=== PATIENT | female | born 2000 | race Caucasian/White ===

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

== ENCOUNTER 2018-01-22 11:25 | Outpatient (CLI) | payer MEDICAID ==
[2018-01-22 12:46] LABS: BASOPHILS % (AUTO) 0.4 %; EOSINOPHILS # (AUTO) 0.2 10^3/uL (0.0-0.7); EOSINOPHILS % (AUTO) 1.4 %; HGB - HEMOGLOBIN 11.4 g/dL (12.0-16.0); LYMPHOCYTES # (AUTO) 1.7 10^3/uL (1.5-3.5); LYMPHOCYTES % (AUTO) 14.1 %; MEAN CORPUSCULAR HEMOGLOBIN 30.8 pg (27.0-31.0); MEAN CORPUSCULAR HGB CONC 34.3 g/dL (32.0-36.0); MEAN CORPUSCULAR VOLUME 89.7 fL (81.0-99.0); MEAN PLATELET VOLUME 7.8 fL (7.9-10.8); MONOCYTES # (AUTO) 1.3 10^3/uL (0.0-1.0); MONOCYTES % (AUTO) 10.5 %; NEUTROPHILS % (AUTO) 73.6 %; PLT - PLATELET COUNT 197 10^3/uL (130-450); RED CELL DISTRIBUTION WIDTH 12.5 % (12.0-15.0); WHITE BLOOD COUNT 12.2 x10^3/uL (4.8-10.8)
== END 2018-01-22 11:26 | disposition home or self-care (01) ==
LOC: LAB 11:25
PROVIDERS: ATTEND Obstetrics & Gynecology
DX: Z34.90 Encounter for supervision of normal pregnancy, unspecified, unspecified trimester (principal)
CPT/HCPCS: 36415; 82950; 85025; 86850

== ENCOUNTER 2018-02-26 14:55 | Outpatient (CLI) | payer MEDICAID | END 2018-02-26 14:56 | disposition home or self-care (01) | LOC: LAB.R 14:55 | PROVIDERS: ATTEND Obstetrics & Gynecology | DX: R80.9 Proteinuria, unspecified (principal) | CPT/HCPCS: 87086 ==

== ENCOUNTER 2018-04-12 08:00 | Outpatient (CLI) | payer MEDICAID | END 2018-04-12 08:01 | LOC: LAB.R 08:00 | PROVIDERS: ATTEND Obstetrics & Gynecology | DX: Z36.85 Encounter for antenatal screening for Streptococcus B (principal) | CPT/HCPCS: 87081 ==

== ENCOUNTER 2018-05-02 15:29 | Inpatient (IN) | payer MEDICAID ==
[2018-05-02 16:42] LABS: BASOPHILS # (AUTO) 0.1 10^3/uL (0.0-0.1); BASOPHILS % (AUTO) 0.5 %; EOSINOPHILS # (AUTO) 0.2 10^3/uL (0.0-0.7); EOSINOPHILS % (AUTO) 1.5 %; HGB - HEMOGLOBIN 9.9 g/dL (12.0-16.0); LYMPHOCYTES # (AUTO) 1.5 10^3/uL (1.5-3.5); LYMPHOCYTES % (AUTO) 11.2 %; MEAN CORPUSCULAR HEMOGLOBIN 25.9 pg (27.0-31.0); MEAN CORPUSCULAR HGB CONC 32.6 g/dL (32.0-36.0); MEAN CORPUSCULAR VOLUME 79.5 fL (81.0-99.0); MEAN PLATELET VOLUME 8.3 fL (7.9-10.8); MONOCYTES # (AUTO) 1.5 10^3/uL (0.0-1.0); MONOCYTES % (AUTO) 11.1 %; NEUTROPHILS # (AUTO) 10.4 10^3/uL (1.5-6.6); NEUTROPHILS % (AUTO) 75.7 %; PLT - PLATELET COUNT 231 10^3/uL (130-450); RED BLOOD COUNT 3.83 10^6/uL (4.20-5.40); RED CELL DISTRIBUTION WIDTH 14.6 % (12.0-15.0); WHITE BLOOD COUNT 13.8 x10^3/uL (4.8-10.8)
[2018-05-02 16:53] LABS: URIC ACID 4.1 mg/dL (2.6-7.2)
[2018-05-02 16:55] LABS: CREATININE,URINE 172.5 mg/dL; PROTEIN/CREATININE RATIO,URINE 0.1 (<=0.2)
[2018-05-02] MEDS ORDERED: fentaNYL 100 MCG/2 ML VIAL IVP PRN (19:10)
[2018-05-02] MEDS ORDERED: SODIUM CHLORIDE FLUSH 0.9% 10 ML SYRINGE IVP PRN (19:10)
--- NOTE | 2018-05-02 19:19 | PROVIDER PROGRESS NOTE ---
Labor Progress Note - Uterine Monitoring Uterine Monitoring Mode: positive: External toco Contraction Frequency (min/apart): Irregular Contraction Intensity: positive: Other (Minimal) Uterine Resting Tone: positive: Soft - Monitoring Monitor Mode: positive: External ultrasound Heart Rate Baseline: Baseline [id number] Heart Rate Variability: positive: Moderate (6-25 bmp) Accelerations: positive: Present, 15x15 Decelerations: positive: None Strip Review: positive: Category I - Vaginal Exam Dilation (in cm): 3 Effacement (%): 60%70% Station: -1 Cervical Position: Midposition - Labor Progress Note Labor Progress Note/Additional Text: Patient being induced for mild gestational hypertension. Quigley score is 8 and Cytotec per [place] membrane is planned. Indications, risks, benefits and alternative to delay induction was reviewed with the patient. Mechanics of induction was reviewed. Patient would like an epidural. Induction consent explained and then signed. Typewritten H&P dictated
[2018-05-02] MEDS: miSOPROStol 100 MCG TABLET BC SCH (20:22)
[2018-05-02] MEDS: LACTATED RINGERS 1,000 ML IV SCH (22:00)
[2018-05-02] MEDS: ACETAMINOPHEN 325 MG TABLET PO SCH (22:16)
[2018-05-03] MEDS: miSOPROStol 100 MCG TABLET BC SCH ×2 (00:35→05:04)
[2018-05-03] MEDS ORDERED: SODIUM CHLORIDE FLUSH 0.9% 10 ML SYRINGE IVP SCH (01:00)
--- NOTE | 2018-05-03 01:29 | HISTORY & PHYSICAL EXAMINATION ---
DATE OF SERVICE: 05/02/2018 Physician: Favian Carrasco MD DIAGNOSES 1. A 39-week 3 day gestation. 2. Gestational hypertension, mild. 3. Anxiety. 4. Anemia. 5. Rh Neg HISTORY OF PRESENT ILLNESS: The patient is a 17-year-old primigravida at 39 weeks 3 days gestation based on 8-week ultrasound, yielding EDC of 05/11/2018. Today, she presented to labor and delivery for blood pressure check and NST. She reports morning headache on most days without visual changes, or right upper quadrant pain. She notes worsened edema in her lower extremities and fingers. On Thursday, she was evaluated in the office and found to have a blood pressure of 140/72 and mild edema. At that time, her cervical exam was 1 cm, 20% effaced and -1 station, posterior. Today's exam has markedly progressed. The [facility] with [facility] total [facility]. Baseline labs: A negative, antibody negative, maternal Rh negative blood type, RPR negative, rubella immune, integrated serum normal, anatomy scan normal, HIV negative, Glucola challenge test 89, a 20-week antibody test negative, GBS negative. RhoGAM injection on 02/11/2018. PAST MEDICAL HISTORY: No chronic disease history or hypertension. The patient states she does have a "nervous stomach." ALLERGIES: NO KNOWN DRUG ALLERGIES. MEDICATIONS: PNV. FAMILY HISTORY: No congenital anomaly history. Positive diabetes, depression, CAD and hypertension. SOCIAL HISTORY: High school graduate. , . Did work as a director of hotel operations. REVIEW OF SYSTEMS CONSTITUTIONAL: No fevers, chills, or recent illness. HEENT: Mild bitemporal headache noted before. No thyroid disease. PULMONARY: Negative. CARDIAC: Negative. GASTROINTESTINAL: Negative currently. GENITOURINARY: Negative. No vaginal bleeding, leakage of fluid or discharge. MUSCULOSKELETAL: Negative. NEUROLOGIC: Negative. PSYCHIATRIC: The patient states that she is uncertain and anxious because everything is new to her. PHYSICAL EXAMINATION GENERAL: Well groomed. in attendance. Patient obviously nervous. Alert, oriented. VITAL SIGNS: Blood pressure 150s/mid 80s. Afebrile. HEENT: Supple neck. Moist mucous membranes. No thyromegaly. EOMI. Nonicteric sclerae. BREASTS: Deferred. LUNGS: Clear to auscultation all quadrants. HEART: Regular. No murmur, no gallop. ABDOMEN: No epigastric tenderness. UTERUS: appropriate size. Vertex presentation. Estimated weight to be 7 -7-1/2 pounds. Normal resting tone. No significant contractions. EXTERNAL GENITALIA: No lesions. VAGINA: No blood or discharge. CERVIX: 3 cm, 60-70% effaces, -1 station, bag of water intact. EXTREMITIES: 2+ finger and hand edema, 1+ tibial edema, 2+ ankle edema, slight facial edema. NEUROLOGIC: Patellar reflexes brisk bilaterally. No clonus elicited. PSYCHIATRIC: Anxious. LABORATORY DATA: Hemoglobin 9.9, platelets 231, white count 13.8; uric acid 4.1 , AST 25, LDH 64. Urine protein to creatinine ratio is 0.1. ASSESSMENT: Patient has had two blood pressures over 140/90 on differing occasions by six hours. She has signs of preeclampsia including headache and edema. Her lab values are normal except for anemia. She is term and meets criteria for gestational hypertension and therefore should be delivered. Cervix is inducible and Quigley score is 8. I had an extended discussion of risks and benefits with the patient and her . If we do not take this opportunity to induce, she will have worsening gestational hypertension. Risk of induction are increased rate, hyperstimulation , cord prolapse, increased blood loss overall, and labor pain. Though some of these risks are slightly higher than vaginal , when balanced against prospects of developing worsening gestational hypertension, induction is her best course of action. We also discussed epidural, about which she had some misconceptions in the probability of having a spinal injury with epidural placement. These misconceptions were placed in perspective. PLAN: Begin Cytotec buccal membrane induction of labor 50 mcg every 4 hours. As head becomes more applied to the cervix and descends, anticipate ruptured membranes, IUPC and conversion to possibly Pitocin if augmentation is required. The patient strongly desires epidural and combination of fentanyl and nitrous oxide will be used in the interim. All patient and questions were answered. TD: 05/02/2018 19:58 SHERYL
--- NOTE | 2018-05-03 01:58 | PROVIDER PROGRESS NOTE ---
Labor Progress Note - Uterine Monitoring Uterine Monitoring Mode: positive: External toco Contraction Frequency (min/apart): q2.5-3 Contraction Intensity: positive: Mild to moderate Uterine Resting Tone: positive: Soft - Monitoring Monitor Mode: positive: External ultrasound Heart Rate Baseline: 125 Heart Rate Variability: positive: Moderate (6-25 bmp) Accelerations: positive: Present, 15x15 Decelerations: positive: Early Strip Review: positive: Category I - Vaginal Exam Dilation (in cm): 6 Station: 1 Cervical Position: Anterior - Labor Progress Note Labor Progress Note/Additional Text: Entering Active Phase of Labor: Desires Epidural
[2018-05-03] MEDS ORDERED: fent/BUPIV 2 MCG/0.125% 250 ML EP ONE (02:35)
[2018-05-03] MEDS ORDERED: ROPIVACAINE 0.2% PF 20 ML AMPULE ONE (02:37)
[2018-05-03] MEDS: ACETAMINOPHEN 325 MG TABLET PO SCH (03:03)
[2018-05-03] MEDS ORDERED: NALBUPHINE 10 MG/ML AMP IVP PRN (03:19)
[2018-05-03] MEDS ORDERED: diphenhydrAMINE INJ 50 MG/ML VIAL IVP PRN (03:19)
[2018-05-03] MEDS ORDERED: NALOXONE 0.4 MG/ML VIAL IVP PRN (03:19)
[2018-05-03] MEDS ORDERED: fent/BUPIV 2 MCG/0.125% 250 ML EP PRN (03:19)
[2018-05-03] MEDS ORDERED: ePHEDrine 50 MG/ML VIAL IVP PRN (03:19)
[2018-05-03] MEDS ORDERED: LACTATED RINGERS 500 ML IV ONE ×2 (03:19→20:19)
[2018-05-03] MEDS ORDERED: ONDANSETRON 4 MG/2 ML VIAL IVP PRN (03:19)
[2018-05-03] MEDS: LACTATED RINGERS 1,000 ML IV SCH ×4 (03:20→20:26)
[2018-05-03] MEDS: ONDANSETRON 4 MG/2 ML VIAL IVP PRN ×2 (06:21→13:19)
--- NOTE | 2018-05-03 08:40 | PROVIDER PROGRESS NOTE ---
Labor Progress Note - Uterine Monitoring Uterine Monitoring Mode: positive: External toco Contraction Frequency (min/apart): Q2-3 Contraction Intensity: positive: Mild to moderate Uterine Resting Tone: positive: Soft - Monitoring Monitor Mode: positive: External ultrasound Heart Rate Variability: positive: Moderate (6-25 bmp) Accelerations: positive: Present, 15x15 Decelerations: positive: None Strip Review: positive: Category I - Vaginal Exam Dilation (in cm): (Deferred) - Labor Progress Note Labor Progress Note/Additional Text: 17 yo with a 39w4d IUP Gestational HTN Reassuring maternal and status SROM at 0500, clear S/p 2 doses of cytotec at 20:25 and 05:00 Expect to start pitocin if cervix improved Expect No S/s pre-eclampsia
--- NOTE | 2018-05-03 08:51 | PROVIDER PROGRESS NOTE ---
Labor Progress Note - Uterine Monitoring Uterine Monitoring Mode: positive: External toco Contraction Frequency (min/apart): Every 3 minutes Contraction Intensity: positive: Mild to moderate Uterine Resting Tone: positive: Soft - Monitoring Monitor Mode: positive: External ultrasound Heart Rate Baseline: 125 Heart Rate Variability: positive: Moderate (6-25 bmp) Accelerations: positive: Present, 15x15 Decelerations: positive: None Strip Review: positive: Category I - Vaginal Exam Dilation (in cm): 5-6 Effacement (%): 100% Station: 1 - Labor Progress Note Labor Progress Note/Additional Text: Patient spontaneously ruptured membranes at 05 100 with clear non-foul fluid. Since 2 AM check progress is been slowed probably due to aggressive hydration for epidural. Patient received another dose of Cytotec and contractions of picked up again clinically. If changes not forthcoming we will insert IUPC.
[2018-05-03] MEDS: METOCLOPRAMIDE 10 MG/2 ML VIAL IVP PRN ×2 (09:11→15:06)
--- NOTE | 2018-05-03 09:34 | PROVIDER PROGRESS NOTE ---
Subjective - Prog Note Date Prog Note Date: 05/03/18 Prog Note Time: 09:31 - Subjective Pt reports feeling: No change (Call from OB RN RE: cervical exam-- / -1. S/ p 2 doses of cytotec. SROM at 05:00.) Objective - Vital Signs/Intake & Output Reviewed Vital Signs: Yes Intake & Output: Intake & Output 04/30/18 05/01/18 05/02/18 05/03/18 23:59 23:59 23:59 23:59 Intake Total 387.5 1495.0 Balance 387.5 1495.0 - Objective General Appearance: positive: No acute distress Neurologic/Psychiatric: positive: Oriented x3 - Lab Results Fish Bones: 05/02/18 16:34 Other Labs: Lab Results x24hrs 05/02/18 05/02/18 05/02/18 Range/Units 16:34 16:34 16:34 WBC 13.8 H (4.8-10.8) x10^3/uL RBC 3.83 L (4.20-5.40) 10^6/uL Hgb 9.9 L (12.0-16.0) g/dL Hct 30.5 L (37.0-47.0) % MCV 79.5 L (81.0-99.0) fL MCH 25.9 L (27.0-31.0) pg MCHC 32.6 (32.0-36.0) g/dL RDW 14.6 (12.0-15.0) % Plt Count 231 (130-450) 10^3/uL MPV 8.3 (7.9-10.8) fL Neut # (Auto) 10.4 H (1.5-6.6) 10^3/uL Lymph # (Auto) 1.5 (1.5-3.5) 10^3/uL [place] # (Auto) 1.5 H (0.0-1.0) 10^3/uL Eos # (Auto) 0.2 (0.0-0.7) 10^3/uL Baso # (Auto) 0.1 (0.0-0.1) 10^3/uL Absolute Nucleated RBC 0.00 x10^3/uL Nucleated RBC % 0.0 /100WBC Uric Acid 4.1 (2.6-7.2) mg/dL AST 25 (10-42) IU/L Lactate Dehydrogenase 164 (91-225) IU/L Urine Creatinine mg/dL Ur Total Protein Timed mg/dL Protein/Creatinin Ratio (<=0.2) 05/02/18 Range/Units 15:35 WBC (4.8-10.8) x10^3/uL RBC (4.20-5.40) 10^6/uL Hgb (12.0-16.0) g/dL Hct (37.0-47.0) % MCV (81.0-99.0) fL MCH (27.0-31.0) pg MCHC (32.0-36.0) g/dL RDW (12.0-15.0) % Plt Count (130-450) 10^3/uL MPV (7.9-10.8) fL Neut # (Auto) (1.5-6.6) 10^3/uL Lymph # (Auto) (1.5-3.5) 10^3/uL [place] # (Auto) (0.0-1.0) 10^3/uL Eos # (Auto) (0.0-0.7) 10^3/uL Baso # (Auto) (0.0-0.1) 10^3/uL Absolute Nucleated RBC x10^3/uL Nucleated RBC % /100WBC Uric Acid (2.6-7.2) mg/dL AST (10-42) IU/L Lactate Dehydrogenase (91-225) IU/L Urine Creatinine 172.5 mg/dL Ur Total Protein Timed 23 mg/dL Protein/Creatinin Ratio 0.1 (<=0.2) Assessment/Plan - Problem List (1) Gestational hypertension Impression: 17 yo with a 39w4d IUP Gestational HTN without S/s preeclampsia SROM at 05:00 No change in CVE per RN (/) Reassuring and maternal status Will start pitocin for augmentation Continue epidural for pain control Expect Qualifiers: Trimester: third trimester Qualified Code(s): O13.3 - Gestational [ -induced] hypertension without significant proteinuria, third trimester
[2018-05-03] MEDS ORDERED: OXYTOCIN/SODIUM CHLORIDE 500 ML IV SCH (10:00)
--- NOTE | 2018-05-03 13:11 | PROVIDER PROGRESS NOTE ---
Labor Progress Note - Uterine Monitoring Uterine Monitoring Mode: positive: External toco Contraction Frequency (min/apart): Q 2-3 min (Pit 5 milliunits/min) Contraction Intensity: positive: Moderate to strong Uterine Resting Tone: positive: Soft - Monitoring Monitor Mode: positive: External ultrasound Heart Rate Variability: positive: Moderate (6-25 bmp) Accelerations: positive: Present, 15x15 Decelerations: positive: None Strip Review: positive: Category I - Vaginal Exam Dilation (in cm): 8 (AROM forebag-- clear) Effacement (%): 90 Station: -1 - Labor Progress Note Labor Progress Note/Additional Text: 17 yo with a 39w4d IUP Gestational HTN Improving cervical exam Reassuring and maternal status Continue epidural and pitocin Expect Watch for S/s pre-eclampsia
[2018-05-03] MEDS ORDERED: WITCH HAZEL/GLYCERIN 1 EACH MED..PAD TOP PRN (16:07)
[2018-05-03] MEDS ORDERED: OXYTOCIN/SODIUM CHLORIDE 250 ML IV ONE (16:07)
[2018-05-03] MEDS ORDERED: MAGNESIUM HYDROXIDE 2,400 MG/30 ML UDC PO PRN (16:07)
[2018-05-03] MEDS ORDERED: RHO(D) IMMUNE GLOBULIN 300 MCG SYRINGE IVP ONE (16:07)
[2018-05-03] MEDS ORDERED: HYDROcod/ACETAM 5/325 MG TABLET PO PRN (16:07)
--- NOTE | 2018-05-03 16:18 | DELIVERY NOTE ---
Delivery Note - Labor Labor: positive: Spontaneous, Augmented by oxytocin - Delivery Method Delivery Method: positive: Spontaneous vaginal delivery - Cervical Ripening Method Cervical Ripening Method: positive: Misoprostil - Presentation Presentation: positive: Vertex, Compound, OA - occiput anterior - Nuchal Cord Nuchal Cord: positive: None - Amniotic Fluid Description Amniotic Fluid Description: positive: Clear - Episiotomy Type Episiotomy Type: positive: None - Laceration Laceration: positive: 2nd degree, Perineal - Suture Suture Type: positive: Vicryl Suture Size: positive: 3-0 - Delivery Outcome Delivery Outcome: positive: Livebirth - [place]: positive: Placed in direct skin contact with mother, Bulb syringe sex: positive: Female : 8 : 9 - Cord Cord: positive: 3 vessels - Placenta Placenta: positive: Intact, Spontaneous - Estimated Blood Loss Estimated Blood Loss (in cc): 300 - Post Delivery Events Post Delivery Events: positive: No post delivery events - Delivery Comments (Free Text/Narrative) Delivery Comments (Free Text/Narrative): 17 yo with a 39w3d IUP was found to have new onset gestational HTN. She was given 2 doses of cytotec for cervical ripening and then pitocin for augmentation. Maddison did receive an epidural for pain control. SROM revealed clear fluid. Maddison spontaneously delivered a viable female named Remedios. Apgars 8/9. The placenta delivered spontaneously, intact with a 3VC. A 2nd degree left vulvar laceration was repaired with 3-0 vicryl. No complications. Will check the baby to see if she is Rh negative or positive since Maddison is A negative. Will give Rhophylac PRN.
[2018-05-03] MEDS: ACETAMINOPHEN 160 MG/5 ML SUSP UDC PO SCH ×2 (20:12→20:24)
[2018-05-03] MEDS ORDERED: CELECOXIB 100 MG CAPSULE PO SCH (21:00)
[2018-05-04] MEDS: IBUPROFEN 100 MG/5 ML UDC PO PRN ×2 (01:32→09:01)
[2018-05-04] MEDS: DOCUSATE SODIUM 100 MG CAPSULE PO SCH ×3 (01:32→21:18)
--- NOTE | 2018-05-04 13:05 | PROVIDER PROGRESS NOTE ---
Subjective - Prog Note Date Prog Note Date: 05/04/18 Prog Note Time: 13:02 - Subjective Pt reports feeling: Improved Subjective: Sitting in bed. Baby in bassinet at bedside. in the visitor's bed. Has ambulated, urinated without difficulty. Pain well controlled. Eating a regular diet. Baby Remedios 9 lbs 3 oz. Per patient, they are watching baby closely. Objective - Vital Signs/Intake & Output Vital Signs: Vital Signs x48h Temp Pulse Resp BP Pulse Ox 05/04/18 11:31 99.1 F 68 18 125/61 97 05/04/18 08:00 98.2 F 78 16 126/70 100 Intake & Output: Intake & Output 05/01/18 05/02/18 05/03/18 05/04/18 23:59 23:59 23:59 23:59 Intake Total 387.5 3352.5 Output Total 2800 Balance 387.5 552.5 - Objective General Appearance: positive: No acute distress Abdomen: positive: Non-tender Neurologic/Psychiatric: positive: Oriented x3 - Lab Results Fish Bones: 05/02/18 16:34 Assessment/Plan - Problem List (1) Hypertension in delivered Impression: 17 yo S/p 05/03/2018, PPD #1 Normal recovery Normotensive Routine care Discharge to home 05/05/2018 Discharge summary dictated: [id number]
[2018-05-04] MEDS ORDERED: RHO(D) IMMUNE GLOBULIN 300 MCG SYRINGE IVP ONE (18:00)
[2018-05-04] MEDS: ACETAMINOPHEN 160 MG/5 ML SUSP UDC PO SCH (18:17)
[2018-05-05] MEDS ORDERED: RHO(D) IMMUNE GLOBULIN 300 MCG SYRINGE IM ONE (00:24)
[2018-05-05] MEDS: ACETAMINOPHEN 160 MG/5 ML SUSP UDC PO SCH ×2 (01:52→11:09)
--- NOTE | 2018-05-05 03:05 | DISCHARGE SUMMARY ---
Physician: Marilia Bob DO FACOG DATE OF ADMISSION: 05/03/2018 DATE OF DISCHARGE: 05/05/2018 DIAGNOSIS ON ADMISSION 1. A 17-year-old, with a 38 week 4 day intrauterine . 2. Gestational hypertension. 3. Cervix remote from delivery. DIAGNOSES ON DISCHARGE 1. A 17-year-old, G1, P1-0-0-1, status post spontaneous vaginal delivery on . 2. Normal recovery. 3. Normotensive. BRIEF HISTORY: Patient is a patient of [facility] who was seen for her routine visit. She was asked to come to the hospital for a repeat blood pressure check, as the office is closed over the weekend. Patient was found to have an elevated blood pressure of 140/72. There were no signs of preeclampsia. Cervical exam revealed that she was 1 cm dilated, 20% effaced, and -1 station. Patient was admitted to the hospital and was started on cervical ripening. She received 2 doses of Cytotec 50 mcg buccally. She was then spontaneously ruptured and received an epidural for pain control. Fluid was noted to be clear. Patient was then given Pitocin and then spontaneously delivered a viable female infant name Jacqueline. Apgars were 8 and 9 at one and five minutes , respectively, and she weighed 9 pounds 3 ounces. EBL was 300 mL, and there were no complications. Patient's course has been unremarkable. She is ambulating and tolerating a regular diet. She is urinating without difficulty, and her pain is controlled with p.o. medications. Patient is now normotensive and so far has not required to be on any antihypertensives. We will anticipate patient going home on day #2, 05/05/2018. Patient will be given instructions to take [id number] ibuprofen, as well as Tylenol. A prescription for Vicodin will be available for patient. Patient is to call should she have any worsening fevers, chills, abdominal pain, or vaginal bleeding. I expect patient to see us in 3 and 8 weeks for a routine examination. She will also be given RhoGAM if the baby is Rh positive. TD: 05/04/2018 13:18 [facility]
[2018-05-05] MEDS: DOCUSATE SODIUM 100 MG CAPSULE PO SCH (11:05)
--- NOTE | 2018-05-05 11:12 | PROVIDER PROGRESS NOTE ---
Subjective - Prog Note Date Prog Note Date: 05/05/18 Prog Note Time: 11:09 - Subjective Pt reports feeling: Improved Subjective: Patient sitting in bed, combing her hair after a shower. Feeling better. Desires to go home. Decreasing lochia. Pain controlled with either Tylenol or ibuprofen. Luis at bedside. Objective - Vital Signs/Intake & Output Vital Signs: Vital Signs x48h Temp Pulse Resp BP Pulse Ox 05/05/18 08:53 98.8 F 74 16 140/68 H 100 05/05/18 03:30 99.3 F 71 18 120/48 L 99 Intake & Output: Intake & Output 05/02/18 05/03/18 05/04/18 05/05/18 23:59 23:59 23:59 23:59 Intake Total 387.5 3352.5 Output Total 2800 Balance 387.5 552.5 - Objective General Appearance: positive: No acute distress Eyes Bilateral: positive: Normal inspection Abdomen: positive: Non-tender (Firm fundus) Neurologic/Psychiatric: positive: Oriented x3 - Lab Results Fish Bones: 05/02/18 16:34 Other Labs: Lab Results x24hrs 05/04/18 Range/Units 18:23 Blood Type A NEGATIVE Maternal Bleed NEGATIVE (NEGATIVE) Assessment/Plan - Problem List (1) Hypertension in delivered Impression: 17 yo S/p , PPD #2 Normal recovery Discharge to home Rx for vicodin available. Take OTC ibuprofen and tylenol PRN first. Follow up at [facility] in 3 and 8 weeks Call for worsening fevers, chills, abdominal pain or vaginal bleeding. Discharge Plan Disposition: Home, Self Care Condition: Good Diet: Regular Activity Restrictions: Activity as Tolerated Shower Restrictions: No Driving Restrictions: Yes (Do not drive after taking vicodin) No Smoking: If you smoke, Please STOP! Call for help. Follow-up with: Doug Wagner MD [Primary Care Provider] -
[2018-05-05 12:27] VITALS: BP 128/54
--- NOTE | 2018-05-05 20:12 | Labor Flowsheet ---
Labor Flowsheet Datetime Report Generated by CPN: 05/05/2018 20:12 Datetime: 05/05/2018 08:41 VITAL SIGNS NBP Sys/Samantha/Mean (mmHg): 141 : 68 : 84 Pulse: 75 LaborFlag: Labor Datetime: 05/03/2018 18:49 SpO2 (%): 100 Datetime: 05/03/2018 15:47 UTERINE ACTIVITY Monitor Mode: External Frequency (min): 1.5-2 Quality: Strong Duration (sec): 60-70 Pattern: Normal: <= 5 Contractions in 10 Minutes Resting Tone (Palpate): Relaxed ASSESSMENT A Monitor Mode: External US FHR Baseline Rate : 125 Variability: Moderate 6-25 bpm Accelerations: 15X15 Decelerations: Variable Category: Category II Datetime: 05/03/2018 15:30 Comments: pushing Datetime: 05/03/2018 15:12 COMMUNICATION Communication: Provider at Bedside Communication Comments: Lisbeth MD Datetime: 05/03/2018 15:07 I/O Interventions: Straight Cath (ml) @ 450 Datetime: 05/03/2018 14:45 VAGINAL EXAM Dilatation (cm): 10.0 Effacement (%): 100 Station: 0 Exam by: Annetta Amin RN Datetime: 05/03/2018 14:32 Patient Position/Activity: Left Lateral Patient Care Comments: peanut ball Datetime: 05/03/2018 14:04 Temperature (C): 37.4 Temperature Route: Oral Datetime: 05/03/2018 13:39 Epidural Procedure Other: Redose Anesthesia Comments: Joey KILN CLEANER Datetime: 05/03/2018 13:30 Contraction Comments: [place] not tracing well due to pt movement. RN at bedside adjusting monitor Datetime: 05/03/2018 13:27 Provider Notified (Name): Joey KILN CLEANER Notification Reason: Pain Datetime: 05/03/2018 13:24 Antiemetics/Antacids: Zofran (mg) @ 4 Datetime: 05/03/2018 13:15 PATIENT CARE IV/Blood Work: IV Bolus Started Datetime: 05/03/2018 13:09 Membrane Comments: AROM forebag Datetime: 05/03/2018 12:56 Hygiene: Yue Care; Underpad Changed Datetime: 05/03/2018 11:57 MEDICATIONS Pitocin (milliunits): Increased to @ 5 Datetime: 05/03/2018 10:30 Pitocin Checklist: At Least 1 Acceleration of 15 bpm x 15 Seconds in 30 Minutes or Adequate Variabi lity; No More than 1 Late Deceleration Occurred in Past 30 Minutes; No More than 2 Variable Decelerat ions > 60 Seconds in Duration and decreasing >60 bpm in 30 minutes; No More than 5 Uterine Contractio ns in 10 Minutes for any 20 Minute Interval; Uterus Palpates Soft between Contractions Datetime: 05/03/2018 09:44 Monitor Interventions for UA: [place] Adjusted Datetime: 05/03/2018 09:33 Stage of : Labor Datetime: 05/03/2018 09:28 Vaginal Bleeding: Normal Show Datetime: 05/03/2018 07:29 Respirations: 18 Datetime: 05/03/2018 05:00 Membrane Status: Ruptured Membranes Rupture Method: Spontaneous Amniotic Fluid Color: Clear Amniotic Fluid Amount: Moderate Amniotic Fluid Odor: Normal Nitrazine: Positive Cervix, Consistency: Soft Cervix, Position: Midposition Datetime: 05/03/2018 03:00 Epidural Procedure: Completed Datetime: 05/03/2018 02:43 PROCEDURE TIME OUT Procedure Verify: Correct Patient Identity; Correct Patient Position Epidural Positioning: Sitting Datetime: 05/03/2018 02:29 ANESTHESIA Anesthesia Plans: Epidural (Annotations: Dr. [place] here obtaining consent for epidural) Datetime: 05/02/2018 23:59 PAIN Pain Scale: 5 Pain Assessment Comments: out of jacuzzi Datetime: 05/02/2018 23:37 Pain Coping: Talking Through Contractions; Breathing Through Contractions Comfort Measures: Hot Shower/Tub/Spa Datetime: 05/02/2018 23:00 FHR Baseline Changes: No Baseline Change Datetime: 05/02/2018 20:25 Cervical Ripening Agents: Cytotec @ 50 Medication Comments: buccally
== END 2018-05-05 13:55 | disposition home or self-care (01) | DRG 775 ==
LOC: WFO 15:29 → FBP 15:32 → WFO 20:07 → OBSVTOIN 05-03 01:38
PROVIDERS: ADMIT Obstetrics & Gynecology; ATTEND Obstetrics & Gynecology
PROC: 10E0XZZ Delivery of Products of Conception, External Approach (ICD-10-PCS; principal; 2018-05-03)
PROC: 0KQM0ZZ Repair Perineum Muscle, Open Approach (ICD-10-PCS; 2018-05-03)
DX: O13.4 Gestational [pregnancy-induced] hypertension without significant proteinuria, complicating childbirth (principal); O99.344 Other mental disorders complicating childbirth; O70.1 Second degree perineal laceration during delivery; O99.02 Anemia complicating childbirth; D64.9 Anemia, unspecified; F41.9 Anxiety disorder, unspecified; O26.893 Other specified pregnancy related conditions, third trimester; Z67.11 Type A blood, Rh negative; Z3A.39 39 weeks gestation of pregnancy; Z37.0 Single live birth
CPT/HCPCS: 36415; 59025; 82570; 83033; 83615; 84156; 84450; 84550; 85025; 86900; 86901; 96360; 96361; 99213

== ENCOUNTER 2022-11-17 08:00 | Outpatient (CLI) | payer MEDICAID ==
[2022-11-17 16:16] LABS: BILIRUBIN,URINE NEGATIVE (NEGATIVE); GLUCOSE, URINE (UA) NEGATIVE (NEGATIVE); KETONES,URINE (UA) NEGATIVE (NEGATIVE); LEUKOCYTE ESTERASE, URINE NEGATIVE (NEGATIVE); NITRITE,URINE NEGATIVE (NEGATIVE); OCCULT BLOOD,URINE NEGATIVE (NEGATIVE); PH,URINE 5.5 PH (5.0-7.5); PROTEIN,URINE NEGATIVE (NEGATIVE); UROBILINOGEN,URINE 0.2 (NORMAL) E.U./dL (NORMAL)
[2022-11-17 16:17] LABS: CLARITY,URINE CLOUDY (CLEAR)
[2022-11-17 16:35] LABS: BACTERIA,URINE Few /HPF (None Seen); RBC,URINE 0-5 /HPF (0-5); SQUAMOUS EPITHELIAL CELL,UR MANY Squamous (<= Few); WBC,URINE 0-3 /HPF (0-5)
== END 2022-11-17 23:59 | disposition home or self-care (01) ==
LOC: LAB 08:00
PROVIDERS: ATTEND Obstetrics & Gynecology
DX: Z34.90 Encounter for supervision of normal pregnancy, unspecified, unspecified trimester (principal)
CPT/HCPCS: 81001; 87086

== ENCOUNTER 2022-11-21 14:29 | Outpatient (CLI) | payer MEDICAID ==
[2022-11-21 18:02] LABS: BASOPHILS # (AUTO) 0.1 10^3/uL (0.0-0.1); BASOPHILS % (AUTO) 0.6 %; EOSINOPHILS # (AUTO) 0.1 10^3/uL (0.0-0.7); EOSINOPHILS % (AUTO) 1.1 %; HCT - HEMATOCRIT 39.4 % (37.0-47.0); HGB - HEMOGLOBIN 13.1 g/dL (12.0-16.0); LYMPHOCYTES # (AUTO) 1.6 10^3/uL (1.5-3.5); LYMPHOCYTES % (AUTO) 16.1 %; MEAN CORPUSCULAR HEMOGLOBIN 29.5 pg (27.0-31.0); MEAN CORPUSCULAR HGB CONC 33.2 g/dL (32.0-36.0); MEAN CORPUSCULAR VOLUME 88.7 fL (81.0-99.0); MEAN PLATELET VOLUME 10.9 fL (7.9-10.8); MONOCYTES # (AUTO) 0.8 10^3/uL (0.0-1.0); MONOCYTES % (AUTO) 7.7 %; NEUTROPHILS # (AUTO) 7.3 10^3/uL (1.5-6.6); NEUTROPHILS % (AUTO) 74.1 %; PLT - PLATELET COUNT 218 10^3/uL (130-450); RED BLOOD COUNT 4.44 10^6/uL (4.20-5.40); RED CELL DISTRIBUTION WIDTH 12.2 % (12.0-15.0); WHITE BLOOD COUNT 9.8 x10^3/uL (4.8-10.8)
[2022-11-22 05:11] LABS: HBsAG SCREEN Negative (Negative)
[2022-11-22 07:09] LABS: RPR Non Reactive (Non Reactive)
[2022-11-22 08:10] LABS: HCV AB Non Reactive (Non Reactive); HIV SCREEN 4TH GENERATION Non Reactive (Non Reactive)
[2022-11-22 17:08] LABS: VARICELLA-ZOSTER AB IGG 172 index (Immune >165)
== END 2022-11-21 14:30 | disposition home or self-care (01) ==
LOC: LAB.N 14:29
PROVIDERS: ATTEND Obstetrics & Gynecology
DX: Z34.90 Encounter for supervision of normal pregnancy, unspecified, unspecified trimester (principal)
CPT/HCPCS: 36415; 85025; 86592; 86762; 86787; 86803; 86850; 86900; 86901; 87340; 87389

== ENCOUNTER 2022-12-09 22:20 | Outpatient (CLI) | payer MEDICAID ==
--- NOTE | 2022-12-10 15:19 | Ultrasound Report ---
PROCEDURE: OB First Trimester INDICATIONS: SUPERVISION OF OUTSIDE/PRIOR DATING DATA: Last menstrual period (LMP): Unknown. LMP-based estimated date of delivery (JASON): Unknown. First dating scan (date and location): 12/09/2022. Estimated date of delivery (JASON) from first dating scan: 06/10/2023. The below data below was generated using the ultrasound JASON of 06/10/2023 TECHNIQUE: Real-time scanning was performed of the fetus and maternal pelvic organs, with image documentation. COMPARISON: None FINDINGS: Embryo: Single live intrauterine is identified with crown-rump length measuring 0.8 cm cor responding to 13 weeks 6 days. Subchorionic hemorrhage is present measuring 4.2 x 2.5 x 4.3 cm. Heart rate: 155 Per minute Measurement variability in dating: +/- 4 weeks by LMP, +/- 7 days by mean sac diameter (use before 6 weeks gestation if crown-rump length not able to be measured), +/- 5 days by crown-rump length (6-12 weeks gestation). Maternal organs: Ovaries demonstrate a left corpus luteal cyst. IMPRESSION: Single live intrauterine with ultrasound gestational age of 13 weeks 6 days. Subchorionic h emorrhage is present. Recommend follow-up imaging at 20-22 weeks for dates and anatomy. Reviewed by: Bobbi Mcdonough MD on 12/10/2022 3:17 PM PDT Approved by: Bobbi Mcdonough MD on 12/10/2022 3:17 PM PDT Station ID: [id number]
== END 2022-12-09 22:21 | disposition home or self-care (01) ==
LOC: DI 22:20
PROVIDERS: ATTEND Obstetrics & Gynecology
DX: Z34.91 Encounter for supervision of normal pregnancy, unspecified, first trimester (principal)

== ENCOUNTER 2022-12-15 08:00 | Outpatient (CLI) | payer MEDICAID ==
[2022-12-15 21:01] LABS: CHLAMYDIA TRACHOMATIS DNA NEGATIVE (NEGATIVE); NEISSERIA GONORRHOEAE DNA NEGATIVE (NEGATIVE); TRICHOMONAS VAGINALIS DNA NEGATIVE (NEGATIVE)
== END 2022-12-15 23:59 | disposition home or self-care (01) ==
LOC: LAB 08:00
PROVIDERS: ATTEND Obstetrics & Gynecology
DX: Z11.3 Encounter for screening for infections with a predominantly sexual mode of transmission (principal)
CPT/HCPCS: 87491; 87591; 87661

== ENCOUNTER 2022-12-26 10:21 | Outpatient (CLI) | payer MEDICAID ==
[2022-12-29 14:08] LABS: AFP MOM 1.17 (.); AFP VALUE 39.5 ng/mL (.); DIA MOM 1.77 (.); DIA VALUE 270.59 pg/mL (.); DSR (BY AGE) 1 IN 1052 (.); DSR (SECOND TRIMESTER) 1 IN 2662 (.); GESTAT. AGE METHOD Ultrasound (.); HCG MOM 1.79 (.); HCG VALUE 75235 mIU/mL (.); INSULIN DEP DIABETES No (.); MATERNAL AGE AT EDD 24.5 yr (.); MULTIPLE GESTATION No (.); OPEN SPINA BIFIDA RISK 1 IN 7137 (.); RACE Caucasian (.); RESULTS Report (.); TEST RESULTS *Screen Negative* (.); TRISOMY 18 RISK Not increased (.); UE3 MOM 1.27 (.); UE3 VALUE 1.18 ng/mL (.); WEIGHT 156 lbs (.)
== END 2022-12-26 10:22 | disposition home or self-care (01) ==
LOC: LAB 10:21
PROVIDERS: ATTEND Obstetrics & Gynecology
DX: Z34.90 Encounter for supervision of normal pregnancy, unspecified, unspecified trimester (principal)
CPT/HCPCS: 36415; 81511

== ENCOUNTER 2023-01-03 22:25 | Emergency (ER) | payer OTHER, MEDICAID ==
[2023-01-03] MEDS ORDERED: LIDOCAINE 1%-EPI 1:100000 10 ML MDV SUBQ STA (23:14)
[2023-01-03] MEDS ORDERED: LIDOCAINE 1%-EPI 1:100000 20 ML MDV SUBQ STA (23:27)
--- NOTE | 2023-01-04 00:59 | ED Physician Documentation ---
History of Present Illness - Stated complaint Stated Complaint: LFT FOOT BIG TOE PX - Chief complaint Chief Complaint: General - Additonal information Additional information: Pain to left great toe. Reports that she injured the toe 1 year ago. States x- rays were done at that time but there was no fracture. She did have to have her nail trephinated for subungual hematoma and eventually the nail fell off. She reports that she has been having increasing pain along the medial aspect of her great toe for the last several days. States that is made worse with physical activity. Does report that she is 17 weeks and she believes she is also having some increased swelling in her lower extremities which is exacerbating her symptoms. Review of Systems Constitutional: denies: Fever Eyes: denies: Loss of vision Ears: denies: Loss of hearing Nose: denies: Rhinorrhea / runny nose Throat: denies: Dental pain / toothache Cardiac: denies: Chest pain / pressure Respiratory: denies: Dyspnea GI: denies: Abdominal Pain : denies: Dysuria Skin: denies: Rash Musculoskeletal: denies: Neck pain PD PAST MEDICAL HISTORY - Past Surgical History Past Surgical History: No - Present Medications Home Medications: Ambulatory Orders Medication Instructions Recorded Confirmed Sucralfate 1 gm PO ACHS #120 tablet 09/09/17 raNITIdine [Zantac] 150 mg PO BID #60 tablet 09/09/17 Bacitracin Zinc Oint 1 applic TOP BID #1 each 01/04/23 - Allergies Allergies/Adverse Reactions: Allergies Allergy/AdvReac Type Severity Reaction Status Date / Time No Known Drug Allergies Allergy Verified 02/27/15 19:15 - Social History Does the pt smoke?: No Smoking Status: Never smoker Does the pt drink ETOH?: No Does the pt have substance abuse?: No - Immunizations Immunizations are current?: Yes - POLST Patient has POLST: No PD ED PE NORMAL - Vitals Vital signs reviewed: Yes - General General: Alert and oriented X 3 - HEENT HEENT: Atraumatic - Neck Neck: Supple, no meningeal sign - Respiratory Respiratory: No respiratory distress - Female Female : Deferred - Rectal Rectal: Deferred - Extremities Extremities: Other (Ingrown toe to the left great nail. There is some surrounding erythema but no rubor, induration or fluctuance.) Results - Vitals Vitals: Vital Signs - 24 hr 01/03/23 22:36 Temperature 36.7 C Heart Rate 74 Respiratory 16 Rate Blood Pressure 121/41 L O2 Saturation 99 Oxygen O2 Source Room air Procedures - Regional nerve block - Minor Nerve block site: Digital - note digit(s) (Left great toe) Nerve block anesthesia: Lidocaine 1% Nerve block aftercare: Excellent anesthesia PD Medical Decision Making - ED course Complexity details: considered differential, d/w patient ED course: Patient 22-year-old female presenting to the emergency department with left great toe pain. Reports has been having toe pain intermittently since an injury that occurred over a year ago. Denies any new trauma to the toe but does report that she has been having some increasing pain along the medial aspect of the dorsum of her great toe where her great toenail has grown back. Physical exam demonstrates an ingrown toenail with some surrounding erythema but no rubor, induration or fluctuance that would be suggestive of paronychia or felion Repeat x-rays considered however given no history of current trauma unlikely that repeat x-rays would be beneficial. Digital block was performed as outlined in procedure note. The ingrown nail was partially Excised. Wound was dressed and patient provided prescription for bacitracin for use at home. Encourage careful follow-up with primary care return to the emergency department as needed. Departure - Departure Disposition: 01 Home, Self Care Clinical Impression: Ingrown toenail of left foot Instructions: ED Ingrown Toenail Excised Prescriptions: Bacitracin Zinc Oint 1 applic TOP BID #1 each Comments: Thank you for allowing us to care for you today at [facility]. Today in the emergency department you are diagnosed with an ingrown toenail to your left great toe. This toenail was partially excised in the emergency department. It is not uncommon to have some residual pain and swelling after having a part of your toenail removed. I recommend regular elevations, ice pack and extra strength Tylenol at home. Please keep the area bandaged while it heals. I recommend twice daily application of a topical antibiotic ointment such as bacitracin or Neosporin. Please follow-up with your primary care doctor. If it anytime you have new or worsening symptoms please do not hesitate to return.
[2023-01-04] MEDS ORDERED: BACITRACIN ZINC OINT 1 PACKET TOP STA (01:02)
[2023-01-04 01:24] VITALS: BP 125/61
== END 2023-01-04 01:25 | disposition home or self-care (01) ==
LOC: ED 22:25
DX: O26.892 Other specified pregnancy related conditions, second trimester (principal); L60.0 Ingrowing nail; Z3A.17 17 weeks gestation of pregnancy
CPT/HCPCS: 1040M; 11765; 99282; 99283; A9270

== ENCOUNTER 2023-01-26 17:06 | Outpatient (CLI) | payer MEDICAID ==
--- NOTE | 2023-01-27 18:01 | Ultrasound Report ---
PROCEDURE: OB Detailed Eval INDICATIONS: SUPERVISION OF OUTSIDE/PRIOR DATING DATA: Last menstrual period (LMP): Unknown. LMP-based estimated date of delivery (JSAON): Unknown. First dating scan (date and location): 12/09/2022. Estimated date of delivery (JASON) from first dating scan: 06/10/2023. The below data below was generated using the ultrasound JASON of 06/10/2023 TECHNIQUE: Real-time scanning was performed of the fetus, with image documentation and biometric measurements. Endovaginal scanning: Not obtained COMPARISON: 12/09/2022 FINDINGS: General: A single living intrauterine gestation is present. Presentation: Breech Placenta: Placental position is anterior, without previa. Amniotic fluid index: 15.4 cm, within normal limits for gestational age. Largest pocket is 4.7 cm. heart rate: 140 beats per minute. Maternal cervical canal: Long and closed biometrics: Biparietal diameter: 4.93 cm, 20 weeks 6 days Head circumference: 18.78 cm, 21 weeks 1 day Abdominal circumference: 17.61 cm, 22 weeks 4 days Femur length: 3.26 cm, 20 weeks 1 day Estimated gestational age from initial scan: 20 weeks 5 days Composite gestational age from present scan: 21 weeks 1 day Estimated weight and percentile: 421.8 g, 81.6 percentile Measurement variability in biometric dating: +/- 10 days from 12-20 weeks gestation, +/- 2 weeks from 20-30 weeks gestation, +/- 3 weeks at 30 weeks gestation or later. Anatomic survey: Neuro: Ventricles are normal at less than 10 mm. Cisterna magna is normal at 3-11 mm. Cerebellum i s normal in size and morphology. Nuchal skin fold: Normal at less than 6 mm between 14 and 20 weeks gestational age. Face: Nose and lips, facial profile are normal. Spine: No evidence for spina bifida. Heart: 4-chambered heart is present, with normal ventricular outflow tracts. Diaphragm: Diaphragm is intact. Stomach: Left-sided stomach is present. Kidneys: No hydronephrosis. Normal is less than 5 mm in 2nd trimester, less than 7 mm in 3rd trimester. Cord: 3 vessel cord has orthotopic insertion. Bladder: Normal in size. Extremities: All 4 extremities are visualized. IMPRESSION: 1. Second trimester living intrauterine with normal interval growth. 2. Normal anatomy study. Reviewed by: Albert Iqbal MD on 01/27/2023 6:00 PM PDT Approved by: Albert Iqbal MD on 01/27/2023 6:00 PM PDT Station ID: [id number]
== END 2023-01-26 17:07 | disposition home or self-care (01) ==
LOC: DI 17:06
PROVIDERS: ATTEND Obstetrics & Gynecology
DX: Z34.92 Encounter for supervision of normal pregnancy, unspecified, second trimester (principal)

== ENCOUNTER 2023-04-15 12:22 | Outpatient (CLI) | payer MEDICAID ==
[2023-04-15 13:02] VITALS: BP 129/68
[2023-04-15 13:07] LABS: BASOPHILS # (AUTO) 0.1 10^3/uL (0.0-0.1); BASOPHILS % (AUTO) 0.5 %; EOSINOPHILS # (AUTO) 0.1 10^3/uL (0.0-0.7); EOSINOPHILS % (AUTO) 1.4 %; HCT - HEMATOCRIT 32.5 % (37.0-47.0); HGB - HEMOGLOBIN 10.5 g/dL (12.0-16.0); LYMPHOCYTES # (AUTO) 1.4 10^3/uL (1.5-3.5); LYMPHOCYTES % (AUTO) 13.6 %; MEAN CORPUSCULAR HEMOGLOBIN 27.9 pg (27.0-31.0); MEAN CORPUSCULAR HGB CONC 32.3 g/dL (32.0-36.0); MEAN CORPUSCULAR VOLUME 86.2 fL (81.0-99.0); MONOCYTES # (AUTO) 0.8 10^3/uL (0.0-1.0); NEUTROPHILS # (AUTO) 7.6 10^3/uL (1.5-6.6); NEUTROPHILS % (AUTO) 75.4 %; PLT - PLATELET COUNT 182 10^3/uL (130-450); RED BLOOD COUNT 3.77 10^6/uL (4.20-5.40); RED CELL DISTRIBUTION WIDTH 12.7 % (12.0-15.0); WHITE BLOOD COUNT 10.1 x10^3/uL (4.8-10.8)
[2023-04-15 13:24] LABS: ALBUMIN 3.6 g/dL (3.2-5.5); ALBUMIN/GLOBULIN RATIO 1.3 (1.0-2.2); BILIRUBIN,TOTAL 0.5 mg/dL (0.2-1.0); CALCIUM 8.9 mg/dL (8.5-10.3); CREATININE 0.7 mg/dL (0.6-1.3); POTASSIUM 3.6 mmol/L (3.5-4.5); TOTAL PROTEIN 6.3 g/dL (6.4-8.9)
[2023-04-15 13:27] LABS: CREATININE,URINE 122.6 mg/dL; PROTEIN/CREATININE RATIO,URINE 0.1 (<=0.2)
--- NOTE | 2023-04-15 14:09 | PROVIDER PROGRESS NOTE ---
- HPI Chief Complaint: Hypertension/PIH Current : Current EDU 06/10/23 Gestation 32 Weeks and 0 Days 3 Para 2 Vital Signs Temperature 98.2 F 04/15/23 12:34 Heart Rate 92 04/15/23 12:34 Respiratory Rate 16 04/15/23 12:34 Blood Pressure 129/68 04/15/23 12:34 Temperature 98.2 F 04/15/23 12:34 Heart Rate 92 04/15/23 12:34 Respiratory Rate 16 04/15/23 12:34 Blood Pressure 129/68 04/15/23 12:34 O2 Saturation If not protocol: Oxygen Flow, liters/minute - Procedures NST Procedure: NST Procedure Start Date 04/15/23 Start Time 12:32 Stop Time 13:00 Vibroacoustic Stimulation Used No Patient States Movement Yes Findings: Laboratory Last Values WBC 10.1 x10^3/uL (4.8-10.8) 04/15/23 13:00 RBC 3.77 10^6/uL (4.20-5.40) L 04/15/23 13:00 Hgb 10.5 g/dL (12.0-16.0) L 04/15/23 13:00 Hct 32.5 % (37.0-47.0) L 04/15/23 13:00 MCV 86.2 fL (81.0-99.0) 04/15/23 13:00 MCH 27.9 pg (27.0-31.0) 04/15/23 13:00 MCHC 32.3 g/dL (32.0-36.0) 04/15/23 13:00 RDW 12.7 % (12.0-15.0) 04/15/23 13:00 Plt Count 182 10^3/uL (130-450) 04/15/23 13:00 MPV 10.0 fL (7.9-10.8) 04/15/23 13:00 Neut # (Auto) 7.6 10^3/uL (1.5-6.6) H 04/15/23 13:00 Lymph # (Auto) 1.4 10^3/uL (1.5-3.5) L 04/15/23 13:00 [place] # (Auto) 0.8 10^3/uL (0.0-1.0) 04/15/23 13:00 Eos # (Auto) 0.1 10^3/uL (0.0-0.7) 04/15/23 13:00 Baso # (Auto) 0.1 10^3/uL (0.0-0.1) 04/15/23 13:00 Absolute Nucleated RBC 0.00 x10^3/uL 04/15/23 13:00 Nucleated RBC % 0.0 /100WBC 04/15/23 13:00 Sodium 135 mmol/L (135-145) 04/15/23 13:00 Potassium 3.6 mmol/L (3.5-4.5) 04/15/23 13:00 Chloride 105 mmol/L (101-111) 04/15/23 13:00 Carbon Dioxide 26 mmol/L (21-32) 04/15/23 13:00 Anion Gap 4.0 (6-13) L 04/15/23 13:00 BUN 12 mg/dL (6-20) 04/15/23 13:00 Creatinine 0.7 mg/dL (0.6-1.3) 04/15/23 13:00 Estimated GFR (MDRD) 103 (>89) 04/15/23 13:00 Glucose 95 mg/dL (74-104) 04/15/23 13:00 Calcium 8.9 mg/dL (8.5-10.3) 04/15/23 13:00 Total Bilirubin 0.5 mg/dL (0.2-1.0) 04/15/23 13:00 AST 15 IU/L (10-42) 04/15/23 13:00 ALT 12 IU/L (10-60) 04/15/23 13:00 Alkaline Phosphatase 83 IU/L (42-121) 04/15/23 13:00 Total Protein 6.3 g/dL (6.4-8.9) L 04/15/23 13:00 Albumin 3.6 g/dL (3.2-5.5) 04/15/23 13:00 Globulin 2.7 g/dL (2.1-4.2) 04/15/23 13:00 Albumin/Globulin Ratio 1.3 (1.0-2.2) 04/15/23 13:00 Urine Creatinine 122.6 mg/dL 04/15/23 13:05 Ur Total Protein Timed 14 mg/dL 04/15/23 13:05 Protein/Creatinin Ratio 0.1 (<=0.2) 04/15/23 13:05 - Plan Plan: Patient is a 22-year-old G3, P2 at 32 weeks 0 days gestation presenting to triage for for headache and right upper quadrant pain.. She has good movement, no leaking, no vaginal bleeding. She had a slight headache at home that started yesterday. Minimal now. Has not taken anything. Also complains of right upper quadrant pain, this is in the inframammary, the midclavicular line above her ribs. She has not taken anything for the pain. Physical Exam Constitutional: alert, no acute distress, well hydrated, well developed, well nourished, appropriate dress. Cardiovascular: Regular rate and rhythm. Respiratory: no respiratory distress. Abdomen: nondistended, nontender, no guarding. Small area of discomfort with reproducible pain with superficial palpation at approximately 2 cm below the inframammary fold in the midclavicular line. No bruising. Psych: affect and mood appropriate, normal interaction, good eye contact. FHT: 135 beats per baseline, moderate variability, accelerations present, no decelerations. Reactive NST Sasser: Quiescent Assessment and plan 1. Rib pain encouraged baths, ice pack. Acetaminophen for pain, although she says she does not like taking this. As this is superficial and not severe, she can probably expectantly manage this. -Declined need for acetaminophen 2. Headache -Resolved prior to me talking to her. -No signs of preeclampsia. Labs are not concerning for disease. Encouraged that she can take acetaminophen although she prefers to avoid this. -Discussed warning signs of preeclampsia.
== END 2023-04-15 14:15 | disposition home or self-care (01) ==
LOC: WFO 12:22 → FBP 12:22 → WFO 14:15
PROVIDERS: ATTEND Obstetrics & Gynecology
DX: O99.891 Other specified diseases and conditions complicating pregnancy (principal); R07.81 Pleurodynia; R51.9 Headache, unspecified; Z3A.32 32 weeks gestation of pregnancy
CPT/HCPCS: 36415; 59025; 80053; 82570; 84156; 85025; 99213; 99214

== ENCOUNTER 2023-05-04 08:00 | Outpatient (CLI) | payer MEDICAID ==
[2023-05-04 22:33] LABS: BACTERIAL VAGINOSIS DNA POSITIVE (NEGATIVE); CANDIDA GLABRATA DNA NEGATIVE (NEGATIVE); CANDIDA GROUP DNA NEGATIVE (NEGATIVE); CANDIDA KRUSEI DNA NEGATIVE (NEGATIVE); TRICHOMONAS VAGINALIS DNA NEGATIVE (NEGATIVE)
== END 2023-05-04 23:59 | disposition home or self-care (01) ==
LOC: LAB.WC 08:00
PROVIDERS: ATTEND Obstetrics & Gynecology
DX: N89.8 Other specified noninflammatory disorders of vagina (principal)
CPT/HCPCS: 81514

== ENCOUNTER 2023-05-14 11:43 | Outpatient (CLI) | payer MEDICAID ==
--- NOTE | 2023-05-15 09:06 | Ultrasound Report ---
PROCEDURE: OB F/U or Repeat INDICATIONS: EXCESSIVE WEIGHT GAIN OUTSIDE/PRIOR DATING DATA: Last menstrual period (LMP): Not available. LMP-based estimated date of delivery (JASON): Not available. First dating scan (date and location): 12/09/2022. Estimated date of delivery (JASON) from first dating scan: 06/10/2023. The below data below was generated using the working JASON of 06/10/2023 TECHNIQUE: Real-time scanning was performed of the fetus, with image documentation and biometric measurements. Endovaginal scanning: Not performed. COMPARISON: OB ultrasound, 12/09/2022 and 01/26/2023. FINDINGS: General: A single living intrauterine gestation is present. Presentation: Vertex Placenta: Placental position is anterior, without previa. Amniotic fluid index: 15.3 cm, with largest pocket 4.1 cm. heart rate: 126 beats per minute. Maternal cervical canal: Close; . Not seen in the entirety therefore not measured. biometrics: Biparietal diameter: 36 weeks 5 days Head circumference: 37 weeks 4 days Abdominal circumference: 41 weeks 3 days Femur length: 35 weeks 4 days Estimated gestational age from initial scan: 36 weeks 1 day. Composite gestational age from present scan: 37 weeks 6 days Estimated weight and percentile: 3730 g; 99.3% Measurement variability in biometric dating: +/- 10 days from 12-20 weeks gestation, +/- 2 weeks from 20-30 weeks gestation, +/- 3 weeks at 30 weeks gestation or more. Other: Not applicable. IMPRESSION: 1. A single living IUP again demonstrated. 2. The estimated weight is 3730g; 99.3% for gestational age, compatible with macrosomia. The ab dominal circumference is greater than 99.5% for gestational age. 3. Cervix is closed. Cervix is now seen in the entirety, therefore, cervical length is not provided Reviewed by: Lillian Cruz MD on 05/15/2023 9:04 AM PDT Approved by: Lillian Cruz MD on 05/15/2023 9:04 AM PDT Station ID: [id number]
== END 2023-05-14 11:44 | disposition home or self-care (01) ==
LOC: DI 11:43
PROVIDERS: ATTEND Obstetrics & Gynecology
DX: O26.03 Excessive weight gain in pregnancy, third trimester (principal); Z3A.37 37 weeks gestation of pregnancy

== ENCOUNTER 2023-05-20 08:00 | Outpatient (CLI) | payer MEDICAID | END 2023-05-20 23:59 | disposition home or self-care (01) | LOC: LAB.WC 08:00 | PROVIDERS: ATTEND Obstetrics & Gynecology | DX: Z36.85 Encounter for antenatal screening for Streptococcus B (principal) | CPT/HCPCS: 87797 ==

== ENCOUNTER 2023-05-25 08:00 | Outpatient (CLI) | payer MEDICAID | END 2023-05-25 23:59 | disposition home or self-care (01) | LOC: LAB 08:00 | PROVIDERS: ATTEND Nurse Practitioner | DX: Z36.85 Encounter for antenatal screening for Streptococcus B (principal) | CPT/HCPCS: 87797 ==

== ENCOUNTER 2023-07-20 20:59 | Emergency (ER) | payer MEDICAID ==
--- NOTE | 2023-07-20 22:33 | XRAY Report ---
PROCEDURE: Foot 3 View LT INDICATIONS: Trauma TECHNIQUE: 3 views of the foot were acquired. COMPARISON: None. FINDINGS: Bones: No fractures or dislocations. No suspicious bony lesions. Hallux valgus. Soft tissues: No suspicious soft tissue calcifications or masses. IMPRESSION: No acute bony abnormality. Reviewed by: Heri Hubbard on 07/20/2023 10:32 PM [facility] Approved by: Heri Hubbard on 07/20/2023 10:32 PM [facility] Station ID: [id number]
--- NOTE | 2023-07-20 23:21 | ED Physician Documentation ---
History of Present Illness - Stated complaint Stated Complaint: L TOE PX/SWELLING - Chief complaint Chief Complaint: Ext Problem - History obtained from History obtained from: Patient - Additonal information Additional information: HPI from patient. Patient complains of left great toe pain, atraumatic with erythema and swelling x 1 week. T+R from this ED December 2022 for same symptoms; at that time ED MD performed digital block and removed part of the toenail due to ingrown nail. ED MD note indicates there was no evidence of infection; topical bacitracin but no rx for PO antibiotics. PD PAST MEDICAL HISTORY - Past Medical History Past Medical History: No Cardiovascular: None Respiratory: None Neuro: None Endocrine/Autoimmune: None GI: None : None Musculoskeletal: None Derm: None - Past Surgical History Past Surgical History: No General: Colonoscopy - Present Medications Home Medications: Ambulatory Orders Medication Instructions Recorded Confirmed Sucralfate 1 gm PO ACHS #120 tablet 09/09/17 raNITIdine [Zantac] 150 mg PO BID #60 tablet 09/09/17 Bacitracin Zinc Oint 1 applic TOP BID #1 each 01/04/23 Doxycycline [Vibramycin] 100 mg PO BID #19 tablet 07/21/23 HYDROcod/ACETAM 5/325 [[place] 5/325] 1 - 2 tablet PO Q6H PRN #14 tablet 07/21/23 - Allergies Allergies/Adverse Reactions: Allergies Allergy/AdvReac Type Severity Reaction Status Date / Time No Known Drug Allergies Allergy Verified 07/20/23 21:08 - Social History Does the pt smoke?: No Smoking Status: Never smoker Does the pt drink ETOH?: No Does the pt have substance abuse?: No - Immunizations Immunizations are current?: Yes - POLST Patient has POLST: No PD ED PE NORMAL - Vitals Vital signs reviewed: Yes - General General: Alert and oriented X 3, No acute distress, Well developed/nourished PD ED PE EXPANDED - Extremities Feet visual: 1 - swelling, tenderness (TTP, fluctuant, confluent erythema, swelling.) Results - Vitals Vitals: Oxygen O2 Source Room air - Rads (name of study) left foot xrays Relevant Findings:: Prelim report reviewed, See rad report Procedures - Regional nerve block - Minor Nerve block site: Digital - note digit(s) Right / left: Left Nerve block anesthesia: Lidocaine 1%, Marcaine 0.5%, Other (1:1 mixture of lidocaine 1% and marcaine 0.5%; total of 6 cc injected) Nerve block aftercare: Excellent anesthesia, Patient tolerated well, No complications PD Medical Decision Making - ED course Complexity details: re-evaluated patient, considered differential, d/w patient ED course: Patient presents with left great toe ingrown toenail at lateral nail fold with a ssociated paronychia. Digital block performed as above (procedure note) and the distal/lateral edge of the nail is removed with iris scissors with immediate return of pus from the nail fold. She is given 100 mg doxycycline p.o. and a 10 day course of doxycycline is prescribed. She is also given a Vicodin take-home pack and a prescription for Vicodin is also provided. Return precautions are discussed. Given the recurrence of this problem at the same location, I emphasized the need for follow-up. Patient might benefit from more definitive treatment such as chemical matricectomy. I am prescribing a short course of short-acting opioid pain medication for this patient. I have reviewed the patients [employer] and no concerning findings were noted. I have discussed that the opioids are for short term therapy only, and will not be refilled from the ED. Departure - Departure Disposition: 01 Home, Self Care Clinical Impression: Paronychia of great toe of left foot Condition: Good Instructions: ED Ingrown Toenail Excised, ED Fingernail Infec Prescriptions: HYDROcod/ACETAM 5/325 [[place] 5/325] 1 - 2 tablet PO Q6H PRN #14 tablet PRN Reason: Pain Doxycycline [Vibramycin] 100 mg PO BID #19 tablet Comments: Prescriptions for Vicodin (narcotic/opiate pain medication) and doxycycline (antibiotic) have been electronically submitted to the [facility] [employer] pharmacy in [place]. You can take ibuprofen for the pain; if this does not provide adequate pain relief within an hour, you can use the Vicodin, as well. Alternatively, you can go directly to the Vicodin for severe pain. Do not take any Tylenol or Tylenol-containing products within 6 hours of taking the Vicodin (there is acetaminophen in Vicodin and too much acetaminophen can be dangerous). You should follow-up with your primary care provider with the goal of referral to a single needle tufting machine operator (you can check with your insurance provider to see if a referral from your primary is necessary). I am prescribing a short course of narcotic pain medication for you. These are potentially dangerous and addictive medications that should be used carefully. These medications may constipate you. Take an [id number] stool softener (docusate) twice daily with plenty of water while taking these medications. If you go 24 hours without a bowel movement, take [id number] miralax, per package instructions. Do not drink or drive while taking these medications. If you received narcotic or sedating medications while in the emergency department, do not drive for 24 hours. Store this medication in a safe, secure place and out of reach of children. It is a violation of federal law to give or sell this medication to another person or to use in a manner other than prescribed. The ED will not refill narcotic prescriptions, including prescriptions lost or stolen. To dispose of unwanted medications: 1. [facility] [address] in [place] has a medication drop box. They accept prescription medications (in pill form) Thursday through Thursday 9:00 a.m. to 5:00 p.m. 2. The [facility] accepts prescription medications (in pill form only) for disposal year round. Call for more information. 3. Contact the [facility] for the next [facility] sponsored prescription drug collection event. , [phone], or [phone]; Forms: PCP List Discharge Date/Time: 07/21/23 03:47
[2023-07-20] MEDS ORDERED: BUPIVACAINE 0.5% PF 10 ML VIAL SUBQ STA (23:43)
[2023-07-20] MEDS ORDERED: lidocaine 1% 20 ML MDV SUBQ STA (23:44)
[2023-07-21] MEDS ORDERED: HYDROcod/ACET 5/325 Prepack 4 PO STA (02:51)
[2023-07-21] MEDS ORDERED: DOXYCYCLINE 100 MG TABLET PO STA (02:52)
[2023-07-21 03:54] VITALS: BP 135/76; O2SAT 97
== END 2023-07-21 03:47 | disposition home or self-care (01) ==
LOC: ED 20:59
DX: L60.0 Ingrowing nail (principal); L03.032 Cellulitis of left toe
CPT/HCPCS: 64450; 73630; 99283; A9270

== ENCOUNTER 2024-05-08 02:55 | Emergency (ER) | payer MEDICAID ==
--- NOTE | 2024-05-08 03:07 | ED Physician Documentation ---
History of Present Illness - Stated complaint Stated Complaint: - History obtained from History obtained from: Patient - Additonal information Additional information: 23yF with history of internal hemorrhoids presents after attempting to have a BM tonight and instead pooping bright red blood into the toilet. Patient states she delivered a baby 11 months ago and was told she had hemorrhoids but had no issues with them until tonight. denies dizziness, weakness, or other concerns. PD PAST MEDICAL HISTORY - Past Medical History Cardiovascular: None Respiratory: None Neuro: None Endocrine/Autoimmune: None GI: None : None Musculoskeletal: None Derm: None - Past Surgical History Past Surgical History: No General: Colonoscopy - Present Medications Home Medications: Ambulatory Orders Medication Instructions Recorded Confirmed Sucralfate 1 gm PO ACHS #120 tablet 09/09/17 raNITIdine [Zantac] 150 mg PO BID #60 tablet 09/09/17 Bacitracin Zinc Oint 1 applic TOP BID #1 each 01/04/23 Doxycycline [Vibramycin] 100 mg PO BID #19 tablet 07/21/23 HYDROcod/ACETAM 5/325 [[place] 5/325] 1 - 2 tablet PO Q6H PRN #14 tablet 07/21/23 Hydrocortisone Supp [Anusol-Hc] 25 mg SD QDDINNER PRN #30 supp 05/08/24 Sennosides/Docusate Sodium 1 each PO QDAC PRN #30 tab 05/08/24 [Senna-Docusate Sodium Tablet] polyethylene glycoL 3350 [Miralax] 17 gm PO DAILY #15 packet 05/08/24 - Allergies Allergies/Adverse Reactions: Allergies Allergy/AdvReac Type Severity Reaction Status Date / Time No Known Drug Allergies Allergy Verified 07/20/23 21:08 - Social History Does the pt smoke?: No Smoking Status: Never smoker Does the pt drink ETOH?: No Does the pt have substance abuse?: No - Immunizations Immunizations are current?: Yes - POLST Patient has POLST: No PD ED PE NORMAL - Vitals Vital signs reviewed: Yes - General General: Alert and oriented X 3, No acute distress, Well developed/nourished - HEENT HEENT: Atraumatic, PERRL, EOMI - Neck Neck: Supple, no meningeal sign - Abdomen Abdomen: Non tender, Non distended - Female Female : Other (palpable internal hemorrhoids. brbpr. ) - Rectal Rectal: Other (palpable internal hemorrhoids. BRBPR) Results - Vitals Vitals: Vital Signs - 24 hr 05/08/24 03:19 Temperature 36.4 C L Heart Rate 72 Respiratory 18 Rate Blood Pressure 141/93 H O2 Saturation 99 Oxygen O2 Source Room air PD Medical Decision Making - ED course ED course: 23yF p/w hemorrhoids and constipation. Prescriptions sent to [facility] for anusol and stool regimen. plan to f/u outpatient with pcp. return precautions given Departure - Departure Disposition: Home, Self Care Clinical Impression: Constipation, Hemorrhoids Condition: Stable Instructions: ANUSOL Suppositories, ED Constipation Prescriptions: Hydrocortisone Supp [Anusol-Hc] 25 mg SD QDDINNER PRN #30 supp PRN Reason: Hemorrhoids polyethylene glycoL 3350 [Miralax] 17 gm PO DAILY #15 packet Sennosides/Docusate Sodium [Senna-Docusate Sodium Tablet] 1 each PO QDAC PRN #30 tab PRN Reason: Constipation Comments: You were seen in the emergency department for constipation and hemorrhoids. Pres criptions sent to [facility]. Please follow-up with your primary care provider and return to the emergency department if you have any new or worsening symptoms or other concerns.
[2024-05-08 03:30] VITALS: BP 141/93; O2SAT 99
== END 2024-05-08 03:37 | disposition home or self-care (01) ==
LOC: ED 02:55
DX: K59.00 Constipation, unspecified (principal); K64.8 Other hemorrhoids
CPT/HCPCS: 99281; 99283